=== PATIENT | female | born 1980 | race Caucasian/White ===

== ENCOUNTER 2022-08-24 05:53 | Emergency (ER) | payer OTHER, SELFPAY ==
[2022-08-24] VITALS (17 sets, daily range): BP systolic 105–141; BP diastolic 70–98; PULSE 60–87; RESP 16–18; TEMP 36.3–36.4; O2SAT 94–99
[2022-08-24] MEDS: KETOROLAC 30 MG/ML inj IVP (07:08)
[2022-08-24] MEDS: ONDANSETRON 2 MG/ML inj 4 MG IVP (07:08)
[2022-08-24] MEDS: 0.9 % SODIUM CHLORIDE 1000 ml 1,000 ML IV ×2 (07:09→09:26)
[2022-08-24 07:18] LABS: Basophils Absolute Auto 0.02 K/uL (0.00-0.30); Basophils Percent Auto 0.3 % (0.0-3.0); Eosinophils Percent Auto 1.4 % (0.0-7.0); Hematocrit 41.3 % (33.0-51.0); Hemoglobin* 13.3 gm/dL (12.0-16.0); Immature Granulocytes Abs Auto 0.01 K/uL (0.00-0.30); Immature Granulocytes Pct Auto 0.1 %; Lymphocytes Absolute Auto 1.48 K/uL (0.90-2.90); Lymphocytes Percent Auto 20.5 % (20-44); Mean Corpuscular HGB Conc 32 gm/dL (32-36); Mean Corpuscular Hemoglobin 29 pg (26-34); Mean Corpuscular Volume 90 fL (80-100); Monocytes Percent Auto 4.7 % (0.0-11.0); Platelet Count* 234 K/uL (140-440); RDW Coefficient of Variation % 12.6 % (11.5-15.5); Red Blood Count 4.59 m/uL (4.00-5.20); White Blood Count* 7.22 K/uL (4.50-11.00)
[2022-08-24 07:24] LABS: Slide Review Reflex No
[2022-08-24 07:29] LABS: Albumin* 4.2 g/dL (3.3-5.0); Chloride* 105 mmol/L (96-114)
[2022-08-24 07:30] LABS: Sodium* 138 mmol/L (135-149)
[2022-08-24 07:32] LABS: Aspartate Amino Transferase* 40 U/L (12-35); Bilirubin Direct* 0.3 mg/dL (0.0-0.5); Bilirubin Total* 0.7 mg/dL (0.1-1.5); Carbon Dioxide* 27 mmol/L (20-32); Creatinine* 0.6 mg/dL (0.5-1.5); Estimated Glomerular Filt Rate 116 ml/min; Total Protein* 7.6 g/dL (6.0-8.3)
[2022-08-24 07:33] LABS: Alanine Aminotransferase* 70 U/L (4-35); Alkaline Phosphatase* 53 U/L (40-150); Blood Urea Nitrogen* 17 mg/dL (5-24); Calcium* 9.1 mg/dL (8.4-10.6); Glucose* 104 mg/dL (60-115)
[2022-08-24 07:45] LABS: Strep A DNA Probe* NOT DETECTED (Not Detectd)
[2022-08-24 07:58] LABS: PCR FLU A Negative PCR FLU A (Negative); PCR FLU B Negative PCR FLU B (Negative)
[2022-08-24 07:58] LABS: Appearance Urine Clear (Clear); Bilirubin Urine Negative (Negative); Blood Urine Negative (Negative); Color Urine Yellow (Yellow); Glucose Urine Negative (Negative); Ketones Urine Negative (Negative); Leukocyte Esterase Urine Negative (Negative); Nitrite Urine Negative (Negative); Protein Urine Negative (Negative)
[2022-08-24 07:59] LABS: SARS PCR* Negative SARS-CoV-2 (Negative)
[2022-08-24 08:01] LABS: Erythrocyte SedimentationRate* 40 mm/hr (2-20)
--- NOTE | 2022-08-24 08:20 | ED.GENADULT ---
HPI - General Adult General Chief complaint: Unspecified Complaint, Adult Stated complaint: body aches, headache, exhaustion Time Seen by Provider: 08/24/22 06:35 History of Present Illness HPI narrative: pt seen in Urgent 08/22/2022 , diagnosed with UTI. Not feeling any better, was told she would feel a little better in 24 hours. Pt still has complaint of body aches, specifically her joints. Was wondering if she possible has Lyme disease. No classis bullseye tick mcneil noted. pt reports multiple bug bites at ankles . pt reports still taking medication for her UTI. 42-year-old woman presenting to the emergency department with complaint of diffuse pain. Pain through back and joints. bad headache. Some nausea. Tearful. Does report a history of migraines. Was seen a day ago in Urgent Care initiated on nitrofurantoin for presumed urinary tract infection. Did have some consistent findings in the urine at that time. Grew out mixed miller. Did not have any abdominal pain dysuria frequency urgency. Has not noticed unusual discharge. She has had some swelling now on her left ankle and her thumbs feel painful. Again just hurts most all over. Pain is increased over the course of 1 week. She has not seen any rashes. She has had bug bites generally over ankles. She is worried that might have Lyme disease. In further conversation she does note that there was a question of some immune mediated disease on workup in the past. As I review records it looks as though ADALI was detected. Does not sound as though this was pursued. Later also notes that he had gotten off the phone with her mother that her father has been diagnosed with PMR. Denies possibility of gonorrhea or chlamydial infection. Related Data Previous Rx's Medication Instructions Recorded nitrofurantoin 100 mg PO BID 7 days #14 caps 08/22/22 monohydrate/macrocrystals 100 mg capsule Allergies Allergy/AdvReac Type Severity Reaction Status Date / Time No Known Drug Allergies Allergy Verified 08/22/22 13:09 Review of Systems Status of ROS: Reports: 10 or more systems reviewed and unremarkable except as noted in History and below [facility] Social History Smoking Status: Never smoker Non-prescribed substance use: denies use Exam Narrative: Exam Narrative: Mild effusion at the left ankle. Mildly tender generally. Const: Vital Signs, click to edit/add: Vital Signs - 24 hr 08/24/22 06:00 08/24/22 08:10 08/24/22 09:28 Temperature 97.5 F L 97.4 F L 97.5 F L Pulse Rate Pulse Rate [Left P ulse Oximeter] 87 76 69 Respiratory Rate 18 18 16 Blood Pressure Blood Pressure [Ri ght Upper Arm] 141/98 H 117/70 115/90 H Pulse Oximetry 99 98 98 Oxygen Delivery Me thod Room Air Room Air Room Air 08/24/22 10:18 08/24/22 10:19 08/24/22 10:30 Temperature Pulse Rate 69 68 68 Pulse Rate [Left P ulse Oximeter] Respiratory Rate Blood Pressure 121/84 Blood Pressure [Ri ght Upper Arm] Pulse Oximetry 95 95 96 Oxygen Delivery Me thod 08/24/22 10:31 08/24/22 10:45 08/24/22 11:00 Temperature Pulse Rate 65 66 66 Pulse Rate [Left P ulse Oximeter] Respiratory Rate Blood Pressure 116/79 Blood Pressure [Ri ght Upper Arm] Pulse Oximetry 94 95 98 Oxygen Delivery Me thod 08/24/22 11:02 08/24/22 11:15 Temperature Pulse Rate 61 60 Pulse Rate [Left P ulse Oximeter] Respiratory Rate Blood Pressure 105/90 H Blood Pressure [Ri ght Upper Arm] Pulse Oximetry 96 98 Oxygen Delivery Me thod Documenting provider has reviewed patient's vital signs: yes Course Vital Signs Vital signs: Initial Vital Signs Temperature 97.5 F L 08/24/22 06:00 Temperature Source Temporal Artery Scan 08/24/22 06:00 Pulse Rate 87 08/24/22 06:00 Pulse Rhythm Regular 08/24/22 06:00 Respiratory Rate 18 08/24/22 06:00 Blood Pressure 141/98 H 08/24/22 06:00 Blood Pressure Mean 112 H 08/24/22 06:00 Blood Pressure Position Semi-Fowlers 08/24/22 06:00 Pulse Oximetry 99 08/24/22 06:00 Oxygen Delivery Method Room Air 08/24/22 06:00 Vital Signs Temperature 97.5 F L 08/24/22 06:00 Pulse Rate 87 08/24/22 06:00 Respiratory Rate 18 08/24/22 06:00 Blood Pressure 141/98 H 08/24/22 06:00 Pulse Oximetry 99 08/24/22 06:00 Oxygen Delivery Method Room Air 08/24/22 06:00 Temperature 97.5 F L 08/24/22 09:28 Pulse Rate 60 08/24/22 11:15 Respiratory Rate 16 08/24/22 09:28 Blood Pressure 105/90 H 08/24/22 11:02 Pulse Oximetry 98 08/24/22 11:15 Oxygen Delivery Method Room Air 08/24/22 09:28 Medical Decision Making MDM Narrative Medical decision making narrative: Underlying history of migraines. Does seem to have a polyarthralgia. Myalgias. Appears to be some viral illness most likely. Need to evaluate though for tick-borne illness or possibly mosquito borne illness like West Nile. Will be treating headache with normal saline Zofran and ketorolac as well as prednisone single dose. After treatment as above still with headache. Proposed ketamine but due to sort edge trialed half a mg of Dilaudid. Headache remained intense especially behind her eyes though not indistinct from history of migraines. Otherwise remains without meningeal signs. Initiated ketamine infusion and overall is somewhat improved feels she can return home. Labs are concerning for mildly elevated transaminases absent of abdominal pain, elevated CRP and ESR. Urinalysis without any evidence of urinary tract infection. Have added on send outs for tick panel as well as West Nile. See patient discharge plan Medical Records Medical records reviewed: Yes I reviewed the patient's medical records Lab Data Lab results reviewed: Yes I reviewed the patient's lab results Labs: Lab Results 08/24/22 08/24/22 08/24/22 Range/Units 07:05 07:10 07:40 WBC 7.22 (4.50-11.00) K/uL RBC 4.59 (4.00-5.20) m/uL Hgb 13.3 (12.0-16.0) gm/dL Hct 41.3 (33.0-51.0) % MCV 90 (80-100) fL MCH 29 (26-34) pg MCHC 32 (32-36) gm/dL RDW Coeff of Jenaro 12.6 (11.5-15.5) % Plt Count 234 (140-440) K/uL Neut % (Auto) 73.0 H (42.0-72.0) % Lymph % (Auto) 20.5 (20-44) % [place] % (Auto) 4.7 (0.0-11.0) % Eos % (Auto) 1.4 (0.0-7.0) % Baso % (Auto) 0.3 (0.0-3.0) % Neut # (Auto) 5.30 (1.7-7.0) K/uL Lymph # (Auto) 1.48 (0.90-2.90) K/uL [place] # (Auto) 0.30 (0.00-0.90) K/UL Eos # (Auto) 0.10 (0.00-0.50) K/uL Baso # (Auto) 0.02 (0.00-0.30) K/uL ESR 40 H (2-20) mm/hr Sodium 138 (135-149) mmol/L Potassium 4.0 (3.6-5.1) mmol/L Chloride 105 (96-114) mmol/L Carbon Dioxide 27 (20-32) mmol/L BUN 17 (5-24) mg/dL Creatinine 0.6 (0.5-1.5) mg/dL Estimated GFR 116 ml/min Glucose 104 (60-115) mg/dL Calcium 9.1 (8.4-10.6) mg/dL Total Bilirubin 0.7 (0.1-1.5) mg/dL Direct Bilirubin 0.3 (0.0-0.5) mg/dL AST 40 H (12-35) U/L ALT 70 H (4-35) U/L Alkaline Phosphatase 53 (40-150) U/L C-Reactive Protein 3.0 H (0.5-1.0) mg/dL Total Protein 7.6 (6.0-8.3) g/dL Albumin 4.2 (3.3-5.0) g/dL Urine Color Yellow (Yellow) Urine Appearance Clear (Clear) Urine pH 7.0 (5.0-8.5) Ur Specific [place] 1.020 (1.000-1.030) Urine Protein Negative (Negative) Urine Glucose (UA) Negative (Negative) Urine Ketones Negative (Negative) Urine Blood Negative (Negative) Urine Nitrite Negative (Negative) Urine Bilirubin Negative (Negative) Urine Urobilinogen 1.0 (0.2-1.0) Ur Leukocyte Esterase Negative (Negative) Urine RBC 0-2 (0-2) Urine WBC 0-2 (0-5) Ur Squamous Epith Cells Few (None-Few) Urine Bacteria Few A (None) SARS-CoV-2 (PCR) Negative SARS-CoV-2 (Negative) Influenza Type A (PCR) Negative PCR FLU A (Negative) Influenza Type B (PCR) Negative PCR FLU B (Negative) Group A Strep DNA NOT DETECTED (Not Detectd) Lab Acknowledgement Test Added 08/24/22 Range/Units 10:46 WBC (4.50-11.00) K/uL RBC (4.00-5.20) m/uL Hgb (12.0-16.0) gm/dL Hct (33.0-51.0) % MCV (80-100) fL MCH (26-34) pg MCHC (32-36) gm/dL RDW Coeff of Jenaro (11.5-15.5) % Plt Count (140-440) K/uL Neut % (Auto) (42.0-72.0) % Lymph % (Auto) (20-44) % [place] % (Auto) (0.0-11.0) % Eos % (Auto) (0.0-7.0) % Baso % (Auto) (0.0-3.0) % Neut # (Auto) (1.7-7.0) K/uL Lymph # (Auto) (0.90-2.90) K/uL [place] # (Auto) (0.00-0.90) K/UL Eos # (Auto) (0.00-0.50) K/uL Baso # (Auto) (0.00-0.30) K/uL ESR (2-20) mm/hr Sodium (135-149) mmol/L Potassium (3.6-5.1) mmol/L Chloride (96-114) mmol/L Carbon Dioxide (20-32) mmol/L BUN (5-24) mg/dL Creatinine (0.5-1.5) mg/dL Estimated GFR ml/min Glucose (60-115) mg/dL Calcium (8.4-10.6) mg/dL Total Bilirubin (0.1-1.5) mg/dL Direct Bilirubin (0.0-0.5) mg/dL AST (12-35) U/L ALT (4-35) U/L Alkaline Phosphatase (40-150) U/L C-Reactive Protein (0.5-1.0) mg/dL Total Protein (6.0-8.3) g/dL Albumin (3.3-5.0) g/dL Urine Color (Yellow) Urine Appearance (Clear) Urine pH (5.0-8.5) Ur Specific [place] (1.000-1.030) Urine Protein (Negative) Urine Glucose (UA) (Negative) Urine Ketones (Negative) Urine Blood (Negative) Urine Nitrite (Negative) Urine Bilirubin (Negative) Urine Urobilinogen (0.2-1.0) Ur Leukocyte Esterase (Negative) Urine RBC (0-2) Urine WBC (0-5) Ur Squamous Epith Cells (None-Few) Urine Bacteria (None) SARS-CoV-2 (PCR) (Negative) Influenza Type A (PCR) (Negative) Influenza Type B (PCR) (Negative) Group A Strep DNA (Not Detectd) Lab Acknowledgement Test Added Discharge Plan Discharge Clinical Impression: Myalgia, Arthralgia, Migraine Patient Disposition: Home w/ Parent or Adult Condition: Improved Additional Instructions: Focus on hydration. Can take up to 800 mg of ibuprofen per dose. This can be combined with up to 1000 mg of acetaminophen per dose. Alternative to the ibuprofen might be up to 500 mg naproxen 2 times daily. Your lab reports should be back in 4-5 days. I would ask you to follow up these results in primary care. Doxycycline and Percocet from [facility]. As I said, protect from the sun during this course of doxycycline and for a few days after. Remember that each tablet of Percocet contains 325 mg of acetaminophen. Return for uncontrolled headache, increasing fever, uncontrolled joint pain or swelling. Can discontinue nitrofurantoin. Prescriptions: No Action nitrofurantoin monohyd/m-cryst 100 mg capsule 100 mg PO BID 7 Days Qty: 14 0RF Rx Instructions: must administer with a meal/food Follow Up/Referrals: Denise Castanon MD [Primary Care Provider] - Stand Alone Forms: [facility] Info Instructions
[2022-08-24 08:21] LABS: RBC Urine 0-2 (0-2); WBC Urine 0-2 (0-5)
[2022-08-24 08:22] LABS: Bacteria Urine Few; Squamous Epithelial Cell Urine Few (None-Few)
[2022-08-24] MEDS: predniSONE 10 MG TABLET 60 MG PO (09:24)
[2022-08-24] MEDS: HYDROmorphone 0.5 mg/0.5 ml inj IVP (10:08)
[2022-08-24] MEDS: KETAMINE HCL 20 MG in 0.9 % SODIUM CHLORIDE 100 ml 100 ML 300.6 MG IVPB (11:30)
[2022-08-28 08:14] LABS: Anaplasma phagocyt PCR Not Detected; Babesia microti by PCR Not Detected; Babesia species by PCR Not Detected; Ehrlichia chaffeensis by PCR Not Detected; Ehrlichia ewingii/canis by PCR Not Detected; Ehrlichia muris-like by PCR Not Detected
== END 2022-08-24 12:15 | disposition home or self-care (01) ==
PROVIDERS: Emergency Provider Family Medicine; PCP Internal Medicine
DX: M79.10 Myalgia, unspecified site (principal); G43.909 Migraine, unspecified, not intractable, without status migrainosus
CPT/HCPCS: 36415; 80048; 80076; 81001; 85025; 85651; 86140; 86789; 87086; 87631; 87651; 87798; 96365; 96375; 99284; J1170; J1885; J2405; J3490; J7030; J7512

== ENCOUNTER 2022-09-02 14:47 | Outpatient (CLI) | payer OTHER, SELFPAY | END 2022-09-02 14:48 | disposition home or self-care (01) | PROVIDERS: PCP Internal Medicine; Visit Provider Internal Medicine | DX: M79.10 Myalgia, unspecified site (principal); E66.9 Obesity, unspecified | CPT/HCPCS: 80053; 84443 ==

== ENCOUNTER 2022-10-13 15:32 | Outpatient (CLI) | payer OTHER, SELFPAY | END 2022-10-13 15:33 | disposition home or self-care (01) | PROVIDERS: PCP Internal Medicine; Visit Provider Physician Assistant | DX: Z01.419 Encounter for gynecological examination (general) (routine) without abnormal findings (principal); Z13.6 Encounter for screening for cardiovascular disorders; Z13.1 Encounter for screening for diabetes mellitus | CPT/HCPCS: 80061; 82947 ==

== ENCOUNTER 2022-11-13 14:32 | Outpatient (CLI) | payer OTHER, SELFPAY ==
--- NOTE | 2022-11-13 14:40 | CRLHL7_ITS ---
For Patients: As a result of the Century Cures Act, medical imaging exams and procedure reports are released immediately into your electronic medical record. You may view this report before your referring provider. If you have questions, please contact your health care provider. BILATERAL DIGITAL SCREENING MAMMOGRAM WITH TOMOSYNTHESIS AND COMPUTER-AIDED DETECTION CLINICAL HISTORY: Routine screening exam. COMPARISON: None. TECHNIQUE: Digital mammogram in CC and MLO projections including computer-aided detection (CAD). Tomosynthesis utilized. BREAST COMPOSITION: The breasts are heterogeneously dense, which may obscure small masses. FINDINGS: RIGHT Breast: Focal asymmetric density upper outer quadrant 5 cm from the nipple. LEFT Breast: No suspicious findings. IMPRESSION: RIGHT breast asymmetry/mass. RECOMMENDATIONS: Additional mammographic views of the RIGHT breast including 3D spot compression CC/MLO. RIGHT breast ultrasound may also be required. BI-RADS Category 0: Incomplete: Need Additional Imaging Evaluation and/or Prior Mammograms for Comparison The [facility] will contact the patient for follow-up. A lay language report of this examination will be provided to the patient. Dictated by Stevie Cuadra MD @ 11/20/2022 12:01:56 PM sharad/Dictated by: Stevie Cuadra MD @ 11/20/2022 12:01:00 PM (Electronically Signed)
== END 2022-11-13 14:33 | disposition home or self-care (01) ==
LOC: MAMMO 14:32
PROVIDERS: PCP Internal Medicine; Visit Provider Internal Medicine
DX: Z12.31 Encounter for screening mammogram for malignant neoplasm of breast (principal); N63.10 Unspecified lump in the right breast, unspecified quadrant; R92.2 Inconclusive mammogram
CPT/HCPCS: 77063; 77067

== ENCOUNTER 2022-12-01 07:30 | Outpatient (CLI) | payer OTHER, SELFPAY ==
--- NOTE | 2022-12-01 07:45 | CRLHL7_ITS ---
For Patients: As a result of the Cures Act, medical imaging exams and procedure reports are released immediately into your electronic medical record. You may view this report before your referring provider. If you have questions, please contact your health care provider. DIAGNOSTIC RIGHT BREAST MAMMOGRAM WITH COMPUTER-AIDED DETECTION AND TOMOSYNTHESIS RIGHT BREAST ULTRASOUND CLINICAL HISTORY: RIGHT breast mass/asymmetry. COMPARISON: 11/13/2022. TECHNIQUE: Digital RIGHT mammogram in 2 projections. Computer-aided detection and tomosynthesis were used. Real-time ultrasound imaging of RIGHT breast with imaging documentation. BREAST COMPOSITION: The breasts are heterogeneously dense, which may obscure small masses FINDINGS: 3D spot compression CC/MLO RIGHT breast mammogram images submitted. Decreased conspicuity of previously noted asymmetric density. No architectural distortion or suspicious mass. No suspicious calcifications. Targeted RIGHT breast ultrasound performed at 11 o`clock 5 cm from the nipple. Normal dense fibroglandular tissue is present. No fibrocystic change or solid mass. IMPRESSION: No evidence of malignancy. RECOMMENDATIONS: Annual bilateral screening mammography. BI-RADS Category 2: Benign Results and recommendations discussed with the patient. A lay language report of this examination will be provided to the patient. Dictated by Stevie Cuadra MD @ 12/01/2022 10:50:30 AM/dara JOSE/Dictated by: Stevie Cuadra MD @ 12/01/2022 10:50:00 AM (Electronically Signed)
--- NOTE | 2022-12-01 08:15 | CRLHL7_ITS ---
For Patients: As a result of the Century Cures Act, medical imaging exams and procedure reports are released immediately into your electronic medical record. You may view this report before your referring provider. If you have questions, please contact your health care provider. PLEASE SEE RIGHT DIAGNOSTIC MAMMOGRAM OF SAME DAY. CRL:dara JOSE/Dictated by: Stevie Cuadra MD @ 12/01/2022 10:50:00 AM (Electronically Signed)
== END 2022-12-01 07:31 | disposition home or self-care (01) ==
PROVIDERS: PCP Internal Medicine; Visit Provider Internal Medicine
DX: N63.10 Unspecified lump in the right breast, unspecified quadrant (principal); R92.8 Other abnormal and inconclusive findings on diagnostic imaging of breast
CPT/HCPCS: 76642; 77065; G0279

== ENCOUNTER 2023-03-01 19:22 | Emergency (ER) | payer OTHER, SELFPAY ==
[2023-03-01] VITALS (13 sets, daily range): BP systolic 120–140; BP diastolic 81–104; PULSE 69–84; RESP 18; TEMP 36.3; O2SAT 95–98
--- NOTE | 2023-03-01 19:49 | CRLHL7_ITS ---
For Patients: As a result of the Century Cures Act, medical imaging exams and procedure reports are released immediately into your electronic medical record. You may view this report before your referring provider. If you have questions, please contact your health care provider. INDICATION: Chest pain TECHNIQUE: Two view chest. FINDINGS: The lungs are clear. The heart, mediastinum and pulmonary vessels are of normal size. There is no evidence of pleural disease. IMPRESSION: Negative chest. Dictated by Geri Chaudhary MD @ 03/01/2023 8:55:32 PM (Electronically Signed)
--- NOTE | 2023-03-01 19:51 | ED_ITS ---
HPI - Chest Pain General Date Seen: 03/01/23 Chief Complaint: Chest Pain Stated Complaint: chest pain, heavy, tingling in arms, pain Time Seen by Provider: 03/01/23 19:25 Source: patient Mode of arrival: ambulatory Limitations: no limitations History of Present Illness HPI narrative: Patient is a very nice 42-year-old female presents here with the centralized chest discomfort, it does radiate to her neck region, is a little bit more intense today than it has been in the past. But she has had this on off for the last 3-6 weeks. She thinks it might be related to her anxiety but she is unsure about that she took some Tylenol earlier today and that did not really change it. She denies any left arm issues associated with this she has no real shortness of breath there is no pleuritic component with this. She has no nausea vomiting or diaphoresis it does not worsen when she walks or moves around. Positive family history with her father having premature coronary disease at age 55, she has elevated lipids, she is not a diabetic, no history of hypertension nonsmoker. Does have an elevated BMI. Being treated currently for anxiety she said she feels this is being treated much better, does not know why she would have the symptoms, she does have a history of palpitations also for the last 3 years on off. Risk Factors Coronary artery disease risk factors: hyperlipidemia and family history of CAD before age 50 Thoracic aortic dissection risk factors: none Related Data On Oral Contraceptives: No Previous Rx's Medication Instructions Recorded escitalopram oxalate 10 mg tablet 10 mg PO QDAY #60 tabs 12/23/22 escitalopram oxalate 5 mg tablet 5 mg PO QDAY #60 tabs 12/23/22 rizatriptan 10 mg tablet (Maxalt) See Rx Instructions PO .COMPLEX #9 12/23/22 tabs omeprazole 20 mg capsule,delayed 20 mg PO DAILY #30 caps 03/01/23 release Allergies Allergy/AdvReac Type Severity Reaction Status Date / Time No Known Drug Allergies Allergy Unverified 10/13/22 14:55 Review of Systems Status of ROS Reports: 10 or more systems reviewed and unremarkable except as noted in History and below PFSH PFS Medical History Vaginal delivery (12/22/12) ?O80 - Encounter for full-term uncomplicated delivery (ICD-10) History of benign breast biopsy (07/30/09) ?Z98.890 - Other specified postprocedural states (ICD-10) Folliculitis ?L73.9 - Follicular disorder, unspecified (ICD-10) Surgical History History of ovarian cystectomy ?Z98.890 - Other specified postprocedural states (ICD-10) ?Z87.42 - Personal history of other diseases of the female genital tract (ICD-10) History of appendectomy ?Z90.49 - Acquired absence of other specified parts of digestive tract (ICD- 10) Family History Father High blood pressure High cholesterol Social History Narrative: School counselor. Master's degree. . Exercises 5 times a week. Nonsmoker, no alcohol use Illicit drug use No concerns for safety or abuse. What is your current living situation?: I presently have a place to live Problems where you live: no known problems In the past 12 months, utilities in danger of being shut off: no In past 12 months, lack of transportation kept you from medical appts, meetings, work, or getting things needed for daily living: no How hard is it for you to pay for the very basics like food, housing, medical care, and heating: not very hard In the past 12 mos, have been you worried that your food would run out before you had money to buy more?: never true In the past 12 mos, the food you bought just didn't last and you didn't have money to buy more?: never true Smoking Status: Never smoker Non-prescribed substance use: denies use How often does anyone, including family, friends and others, physically hurt you : never How often does anyone, including family, friends and others, insult or talk down to you: never How often does anyone, including family, friends and others, threaten you with harm: never How often does anyone, including family, friends and others, scream or curse at you: never Little interest or pleasure in doing things: several days Feeling down, depressed, or hopeless: several days Exam Narrative Exam Narrative: Patient is speaking normally, no problem with slurring words, oriented x3. Head eyes ears nose and throat exam show equal pupils, no scleral icterus, extraocular muscles are normal, no facial droop, speech is normal, trachea normal and midline. Thyroid normal midline palpable not enlarged. Chest shows symmetrical rise bilaterally, normal auscultation with no wheezes, no increased work of breathing, no overt bruising or lesions seen, no tenderness is noted on auscultation. Heart sounds normal with no S3-S4 no murmurs clicks or gallops. Abdomen shows no obvious masses or hepatosplenomegaly, no organomegaly, bowel sounds are normal in all quadrants. No tenderness is noted also in all quadrants. Upper and lower extremities show normal power, normal range of motion, pulses are normal, sensations normal, fine motor movements are normal, pelvis is stable to rocking. Cervical spine shows normal range of motion, and palpably not tender. Thoracic spine shows normal range of motion, and palpably not tender, lumbar spine shows no tenderness to palpation percussion and is othe rwise normal range of motion. Skin shows no rashes, petechiae or eccymosis. Const Vital Signs, click to edit/add: Vital Signs - 24 hr 03/01/23 19:29 03/01/23 19:42 03/01/23 19:43 Temperature 97.3 F L Pulse Rate 75 84 Pulse Rate [Left Pulse Oximeter] 78 Respiratory Rate 18 Blood Pressure 140/104 H Blood Pressure [Right Upper Arm] 138/92 H Pulse Oximetry 98 98 98 Oxygen Delivery Method Room Air 03/01/23 19:45 03/01/23 20:00 03/01/23 20:02 Temperature Pulse Rate 82 76 77 Pulse Rate [Left Pulse Oximeter] Respiratory Rate Blood Pressure 128/91 H Blood Pressure [Right Upper Arm] Pulse Oximetry 98 97 97 Oxygen Delivery Method 03/01/23 20:15 03/01/23 20:21 03/01/23 20:30 Temperature Pulse Rate 82 76 73 Pulse Rate [Left Pulse Oximeter] Respiratory Rate Blood Pressure 130/81 Blood Pressure [Right Upper Arm] Pulse Oximetry 97 95 97 Oxygen Delivery Method 03/01/23 20:42 03/01/23 20:45 Temperature Pulse Rate 74 71 Pulse Rate [Left Pulse Oximeter] Respiratory Rate Blood Pressure 120/84 Blood Pressure [Right Upper Arm] Pulse Oximetry 97 97 Oxygen Delivery Method Documenting provider has reviewed patient's vital signs: yes Course Course ED Course: Reassured patient, all her laboratory work look reasonable, I do not think this is a cardiac cause of her chest pain, but I do think reflux is a possibility, omeprazole 20 mg a day is suggested we went over signs symptoms of worsening, and follow up with her primary care physician suggestive ongoing pain a stress echo, but I do think trying the omeprazole be a good 1st step. He was reassured by this Vital Signs Vital signs: Initial Vital Signs Temperature 97.3 F L 03/01/23 19:29 Temperature Source Temporal Artery Scan 03/01/23 19:29 Pulse Rate 78 03/01/23 19:29 Pulse Rhythm Regular 03/01/23 19:29 Respiratory Rate 18 03/01/23 19:29 Blood Pressure 138/92 H 03/01/23 19:29 Blood Pressure Mean 107 H 03/01/23 19:29 Blood Pressure Position Sitting 03/01/23 19:29 Pulse Oximetry 98 03/01/23 19:29 Oxygen Delivery Method Room Air 03/01/23 19:29 Vital Signs Temperature 97.3 F L 03/01/23 19:29 Pulse Rate 78 03/01/23 19:29 Respiratory Rate 18 03/01/23 19:29 Blood Pressure 138/92 H 03/01/23 19:29 Pulse Oximetry 98 03/01/23 19:29 Oxygen Delivery Method Room Air 03/01/23 19:29 Temperature 97.3 F L 03/01/23 19:29 Pulse Rate 71 03/01/23 20:45 Respiratory Rate 18 03/01/23 19:29 Blood Pressure 120/84 03/01/23 20:42 Pulse Oximetry 97 03/01/23 20:45 Oxygen Delivery Method Room Air 03/01/23 19:29 Medications Administered Medications: Discontinued Medications Generic Name Dose Route Start Last Admin Trade Name Freq PRN Reason Stop Dose Admin Aspirin 324 mg 03/01/23 19:57 03/01/23 20:15 Aspirin 81 Mg Tab.Chew PO 03/01/23 19:58 324 mg ONCE ONE Administration Sodium Chloride 1,000 mls @ 1,000 mls/hr 03/01/23 20:00 03/01/23 20:15 0.9 % Sodium Chloride 1000 Ml IV 03/01/23 20:59 1,000 mls/hr .Q1H JUAN Administration MDM - Chest Pain MDM Narrative Medical decision making narrative: During the evaluation of this patient I considered multiple differential diagnosis is. The life-threatening differential diagnosis include coronary disease/RI, pulmonary embolism, pneumothorax, pneumonia, and aortic dissection. Other differential diagnosis included but were not limited to pericarditis, myocarditis, chest wall pain, GERD, esophageal rupture, rib fracture contusion, pleurisy, as well as other etiologies. Medical Records Data Attestation: I reviewed the patient's medical records. Lab Data Attestation: I reviewed the patient's lab results. Labs: Lab Results 03/01/23 Range/Units 20:00 WBC 8.01 (4.50-11.00) K/uL RBC 4.62 (4.00-5.20) m/uL Hgb 13.5 (12.0-16.0) gm/dL Hct 41.5 (33.0-51.0) % MCV 90 (80-100) fL MCH 29 (26-34) pg MCHC 33 (32-36) gm/dL RDW Coeff of Jenaro 13.0 (11.5-15.5) % Plt Count 268 (140-440) K/uL Neut % (Auto) 61.3 (42.0-72.0) % Lymph % (Auto) 31.1 (20-44) % [place] % (Auto) 5.2 (0.0-11.0) % Eos % (Auto) 2.0 (0.0-7.0) % Baso % (Auto) 0.4 (0.0-3.0) % Neut # (Auto) 4.91 (1.7-7.0) K/uL Lymph # (Auto) 2.49 (0.90-2.90) K/uL [place] # (Auto) 0.40 (0.00-0.90) K/UL Eos # (Auto) 0.16 (0.00-0.50) K/uL Baso # (Auto) 0.03 (0.00-0.30) K/uL Abs Immat Gran (auto) 0.00 (0.00-0.30) K/uL Imm/Tot Granulo (auto) 0.0 % D-Dimer Quant (PE/DVT) < 0.27 (0.00-0.50) ug/ml Sodium 138 (135-149) mmol/L Potassium 3.6 (3.6-5.1) mmol/L Chloride 103 (96-114) mmol/L Carbon Dioxide 26 (20-32) mmol/L Anion Gap 9 (7-15) mEq/L BUN 16 (5-24) mg/dL Creatinine 0.7 (0.5-1.5) mg/dL Estimated GFR 112 ml/min Glucose 92 (60-115) mg/dL Calcium 9.2 (8.4-10.6) mg/dL Total Bilirubin 0.2 (0.1-1.5) mg/dL Direct Bilirubin 0.0 (0.0-0.5) mg/dL AST 25 (12-35) U/L ALT 26 (4-35) U/L Alkaline Phosphatase 38 L (40-150) U/L Troponin I 0.02 (0.01-0.04) ng/mL NT-Pro-B Natriuret Pep 104 pg/mL Total Protein 7.8 (6.0-8.3) g/dL Albumin 4.6 (3.3-5.0) g/dL Lipase 47 (23-300) U/L SARS-CoV-2 (PCR) Negative SARS-CoV-2 (Negative) Influenza Type A (PCR) Negative PCR FLU A (Negative) Influenza Type B (PCR) Negative PCR FLU B (Negative) RSV (PCR) Negative PCR RSV (Negative) Imaging Data Chest x-ray: Attestation: I have reviewed the pertinent imaging results. My impression: Chest x-ray by my review shows no acute findings, ECG Data Attestation: I personally reviewed and interpreted this ECG as follows: ECG interpretation date: 03/01/23 Interpretation: EKG shows normal sinus rhythm no acute ST wave changes. Assessment normal EKG. Discharge Plan Discharge Clinical Impression: Heart palpitations, Chest pain Patient Disposition: Home, Self-Care Condition: Stable Instructions: Chest Pain (DC), Heart Palpitations (ED), GERD (Gastroesophageal Reflux Disease) (DC) Additional Instructions: All a tests were normal, including her troponin EKG chest x-ray and a D-dimer. I do really suspect that this might be related to reflux, he do have some risk factors for heart disease, but overall I think I would suggest trying omeprazole 20 mg a day for the next 30 days. Follow-up with regular physician if any other concerns arise then we would suggest a stress echo, but tonight I can reassure you. Activity Level: Light activity Prescriptions: New omeprazole 20 mg capsule,delayed release(DR/EC) 20 mg PO DAILY Qty: 30 3RF No Action escitalopram oxalate 10 mg tablet 10 mg PO QDAY Qty: 60 3RF escitalopram oxalate 5 mg tablet 5 mg PO QDAY Qty: 60 3RF rizatriptan [Maxalt] 10 mg tablet See Rx Instructions PO .COMPLEX Qty: 9 3RF Rx Instructions: take 1 tab at onset of headache; if no relief may repeat 1 tab after at least 2 hrs; max = 3 tabs/24 hr PO Follow Up/Referrals: Generic,Amb Provider [Staff Physician] - Stand Alone Forms: MyHealth Info Instructions
[2023-03-01 20:08] LABS: Basophils Absolute Auto 0.03 K/uL (0.00-0.30); Basophils Percent Auto 0.4 % (0.0-3.0); Eosinophils Absolute Auto 0.16 K/uL (0.00-0.50); Hematocrit 41.5 % (33.0-51.0); Hemoglobin* 13.5 gm/dL (12.0-16.0); Lymphocytes Absolute Auto 2.49 K/uL (0.90-2.90); Lymphocytes Percent Auto 31.1 % (20-44); Mean Corpuscular HGB Conc 33 gm/dL (32-36); Mean Corpuscular Hemoglobin 29 pg (26-34); Mean Corpuscular Volume 90 fL (80-100); Monocytes Percent Auto 5.2 % (0.0-11.0); Neutrophils Absolute Auto 4.91 K/uL (1.7-7.0); Neutrophils Percent Auto 61.3 % (42.0-72.0); Platelet Count* 268 K/uL (140-440); Red Blood Count 4.62 m/uL (4.00-5.20); White Blood Count* 8.01 K/uL (4.50-11.00)
[2023-03-01 20:09] LABS: Slide Review Reflex No
[2023-03-01] MEDS: 0.9 % SODIUM CHLORIDE 1000 ml 1,000 ML IV (20:15)
[2023-03-01] MEDS: ASPIRIN 81 MG TAB.CHEW 324 MG PO (20:15)
[2023-03-01 20:22] LABS: Albumin* 4.6 g/dL (3.3-5.0)
[2023-03-01 20:23] LABS: Chloride* 103 mmol/L (96-114); Potassium* 3.6 mmol/L (3.6-5.1); Sodium* 138 mmol/L (135-149)
[2023-03-01 20:25] LABS: Alkaline Phosphatase* 38 U/L (40-150); Anion Gap 9 mEq/L (7-15); Aspartate Amino Transferase* 25 U/L (12-35); Bilirubin Total* 0.2 mg/dL (0.1-1.5); Blood Urea Nitrogen* 16 mg/dL (5-24); Carbon Dioxide* 26 mmol/L (20-32); Creatinine* 0.7 mg/dL (0.5-1.5); Estimated Glomerular Filt Rate 112 ml/min; Total Protein* 7.8 g/dL (6.0-8.3)
[2023-03-01 20:26] LABS: Alanine Aminotransferase* 26 U/L (4-35); Calcium* 9.2 mg/dL (8.4-10.6); Glucose* 92 mg/dL (60-115); Lipase* 47 U/L (23-300)
[2023-03-01 20:35] LABS: D Dimer Quantitative* < 0.27 ug/ml (0.00-0.50)
[2023-03-01 20:37] LABS: Troponin I* 0.02 ng/mL (0.01-0.04)
[2023-03-01 20:41] LABS: NT Pro B Type NatriureticPept* 104 pg/mL
[2023-03-01 20:52] LABS: PCR FLU A Negative PCR FLU A (Negative); PCR FLU B Negative PCR FLU B (Negative); PCR RSV Negative PCR RSV (Negative)
[2023-03-01 20:53] LABS: SARS PCR* Negative SARS-CoV-2 (Negative)
== END 2023-03-01 21:06 | disposition home or self-care (01) ==
PROVIDERS: Emergency Provider Family Medicine
DX: R07.9 Chest pain, unspecified (principal); R00.2 Palpitations
CPT/HCPCS: 36415; 71046; 80048; 80076; 83690; 83880; 84484; 85025; 85379; 87631; 93005; 94761; 99284; 99285; A9270; J7030

== ENCOUNTER 2024-01-18 13:08 | Outpatient (CLI) | payer BC, SELFPAY ==
--- OUTSIDE RECORDS SUMMARY | 2024-01-18 13:11 | XMS_ITS | Clinical Summary ---
Author Organization [email or web address] Address [place], [place] [address] Care Team Providers Care Communications Program Manager Name Role Phone Pcp, No Primary Care Provider Unavailabl e Allergies No known active allergies Medications Medication Sig Dispensed Refills Start Date End Date Status vitamin-folic acid 1 mg ( VITAMIN) tablet/capsule Take 1 tablet by mouth once daily. 0 05/06/2014 Active Active Problems Problem Noted Date Diagnosed Date Amenorrhea 03/27/2010 Lump or mass in breast 07/26/2009 Other and unspecified ovarian cyst 01/30/2009 Sprain of ankle, unspecified site 09/29/2006 Immunizations Name Administration Dates Next Due Tdap 07/10/2011 Family History Medical History Relation Name Comments Good Health Father Hyperlipidemia Father Good Health Mother Relation Name Status Comments Brother 1 Alive Brother 2 Alive Father Alive Maternal Grandfather Maternal Grandmother Alive Mother Alive Paternal Grandfather Paternal Grandmother Alive Social History Tobacco Use Types Packs/Day Years Used Date Smoking Tobacco: Never Smokeless Tobacco: Never Tobacco Cessation:Counseling Given: Yes Alcohol Use Standard Drinks/Week Comments No 0 (1 standard drink = 0.6 oz pur e alcohol) no Sex and Gender Information Value Date Recorded Sex Assigned at Not on file Gender Identity Not on file Sexual Orientation Not on file Obstetrics History Para Term AB IAB SAB Ectopic Multiple Livin g Live Births 1 0 1 1 0 Date Outcome GA Total Labor Labor/2nd/3rd Weight Sex Type Anes PTL Chaparrita A1 A5 Name Clin SAB Last Filed Vital Signs Vital Sign Reading Time Taken Comments Blood Pressure 106/73 05/06/2014 10:10 AM [facility] Pulse 92 05/06/2014 10:10 AM [facility] Temperature 36.4 ??C (97.6 ??F) 05/06/2014 1 0:10 AM [facility] Respiratory Rate 16 07/10/2011 3:42 PM CDT Oxygen Saturation 97% 01/07/2011 3:04 PM CDT Inhaled Oxygen Concentration - - Weight 80.2 kg (176 lb 12.8 oz) 015 10:10 AM [facility] Height 158.1 cm (5' 2.25) 07/10/2011 3:42 PM CD T Body Mass Index 32.08 07/10/2011 3:42 PM CDT Plan of Treatment Health Maintenance Due Date Last Done Comments Depression screening for age 12+ 1994 BMI (ht and wt on same day) for age 18+ 2000 Hepatitis C screening for age 18-79 2000 Tetanus booster 07/09/2021 07/10/2011 Pap test for age 21-65 01/03/2023 0, 01/04/2020, 04/18/2014, Additional history exists COVID-19 vaccine series (2023- season) 2023 Influenza for age 9-49 11/22/2023 HIV for age 15-65 Completed 10/08/2009 Tdap Completed 07/10/2011 Pneumococcal series for age 6-64 Aged Out No longer eligible based on patient's age to complete this topic Procedures Procedure Name Priority Date/Time Associated Diagnosis Comments AQUATICS ASSISTANT DEPARTMENT HEAD THIN PREP PAP DIAGNOSTIC IMAGED Routine 01/04/2020 9:00 AM CDT ANTI HIV 1/2 Routine 10/08/2009 3:30 PM CDT Supervision of normal first from Last 3 Months or Most Recently Relevant to Health Maintenance Results * AQUATICS ASSISTANT DEPARTMENT HEAD THIN PREP PAP DIAGNOSTIC IMAGED (01/04/2020 9:00 AM CDT) Case Report Gynecologic Cytology Report ? Case: [id number] ? Authorizing Provider: ??Marcelina Zambrano ?Collected: ? 01/04/2020 0900 ? MD Jasmin ? Ordering Location: ? [facility] ?Received: ?01/05/2020 0959 ? First Screen: ?Emily Carter ? Pathologist: ? Melissa Quan MD ? Specimen: ?AQUATICS ASSISTANT DEPARTMENT HEAD ThinPrep Vial Diagnostic, Cervical/Vaginal ? 01/13/2020 11:25 AM [facility] EN[facility]AL LABORATORY INTERPRETATION/ RESULT NEGATIVE FOR INTRAEPITHELIAL LESION OR MALIGNANCY (NIL) (none) 01/13/2020 11:25 AM [facility] R NON-NEOPLASTIC FINDING(S) Reactive cellular changes associated with inflammation/repa ir 01/13/2020 11:25 AM [facility] SPECIMEN ADEQUACY Satisfactory for evaluation No endocervical component seen 01/13/2020 11:25 AM CDT [facility] HPV REQUEST HPV and PAP 01/13/2020 11:25 AM CDT [facility] Date of LMP 12/16/2019 01/13/2020 11:25 AM CDT [facility] Last Pap Date 04/18/2014 01/13/2020 11:25 AM CDT [facility] Last Pap Result NIL 0 11:25 AM CDT [facility] Comment:-hpv Additional Information 01/13/2020 11:25 AM CDT [facility] Comment: Interpreted at [facility] - [address], [place] [address] Automated Review Successful 01/13/2020 11:25 AM CDT [facility] Comment:Specimen processed s uccessfully by automated java web developer device, ThinPrep Imaging System, [employer] ANCILLARY TESTING AQUATICS ASSISTANT DEPARTMENT HEAD HPV Ordered, Please see separate report 01/13/2020 11:25 AM CDT [facility] Note The pap test is a screening technique, not a diagnostic procedure. It is used primarily to screen for squamous cancers and precursor lesions. Published studies have shown that it is subject to both false negative and false positive results. The pap test should not be used as the sole means to diagnose or exclude pre-malignant and malignant lesions. 01/13/2020 11:25 AM CDT [facility] Other (Cervical/Vagina l) 01/04/2020 9:00 AM CDT 01/05/2020 9:59 AM CDT Marcelina Zambrano MD PATHOLOGY/ CYTOLOGY [facility] [address] [place] [address], * HIV (10/08/2009 3:30 PM CDT) ANTI HIV 1/2 Non-reacti ve [facility] Blood specimen (specimen) BLOOD SPECIMEN / Unknown 10/08/2009 3:30 PM CDT 10/08/2009 3:23 PM CDT Brenda Mcclendon ENVELOPE FOLDING MACHINE OPERATOR SEND OUTS [facility] INTERNAL ZIP [id number] [address] from Last 3 Months or Most Recently Relevant to Health Maintenance Care Teams Communications Program Manager Relationship Specialty Start Date End Date Pcp, No . PCP - General 02/26/18
--- NOTE | 2024-01-18 13:20 | CRLHL7_ITS ---
For Patients: As a result of the Century Cures Act, medical imaging exams and procedure reports are released immediately into your electronic medical record. You may view this report before your referring provider. If you have questions, please contact your health care provider. BILATERAL SCREENING MAMMOGRAM WITH COMPUTER-AIDED DETECTION AND TOMOSYNTHESIS TECHNIQUE: CC and MLO views were obtained. These mammographic images have been obtained using full-field digital technique. These mammographic images were interpreted with the benefit of computer-aided detection. Breast Tomosynthesis was used in this interpretation. COMPARISON FILM: 11/13/22, 12/01/22. FINDINGS: There are scattered areas of fibroglandular density IMPRESSION: There is no radiographic evidence for malignancy. ASSESSMENT: BI-RADS Category 1: Negative RECOMMENDATION: Routine screening mammogram in 1 year. A lay language report of this examination will be provided to the patient. Stevie Cuadra M.D. Diagnostic Radiologist [email or web address] Transcribed: 1:29 p.taylor orourke/Dictated by: Stevie Cuadra MD @ 01/19/2024 8:51:00 AM (Electronically Signed)
== END 2024-01-18 13:09 | disposition home or self-care (01) ==
LOC: MAMMO 13:09
PROVIDERS: Visit Provider Physician Assistant
DX: Z12.31 Encounter for screening mammogram for malignant neoplasm of breast (principal)
CPT/HCPCS: 77063; 77067

== ENCOUNTER 2024-10-31 16:15 | Outpatient (CLI) | payer BC, SELFPAY ==
[2024-11-03 05:31] LABS: HPV Source Cervix
[2024-11-07 12:30] LABS: Pap Test Digital Imaging Done; Pap Test Reviewed by Pathologi Done
== END 2024-10-31 16:16 | disposition home or self-care (01) ==
PROVIDERS: Visit Provider Physician Assistant
DX: Z12.4 Encounter for screening for malignant neoplasm of cervix (principal); Z11.51 Encounter for screening for human papillomavirus (HPV)
CPT/HCPCS: 87624; 87625; 88141; 88142; 88175

== ENCOUNTER 2025-02-07 15:06 | Outpatient (CLI) | payer BC, SELFPAY ==
--- NOTE | 2025-02-07 15:20 | CRLHL7_ITS ---
For Patients: As a result of the Century Cures Act, medical imaging exams and procedure reports are released immediately into your electronic medical record. You may view this report before your referring provider. If you have questions, please contact your health care provider. INDICATION: BILATERAL SCREENING MAMMOGRAM, ASYMPTOMATIC 44 Y/O FEMALE COMPARISON: 01/18/2024, 12/01/2022, 11/13/2022 TECHNIQUE: Digital mammogram in CC and MLO projections including computer-aided detection (CAD) and tomosynthesis. BREAST COMPOSITION: The breasts are heterogeneously dense, which may obscure small masses. FINDINGS: No suspicious findings. ASSESSMENT: BI-RADS 1 Negative RECOMMENDATION: Annual screening mammogram. A lay language report of this examination will be provided to the patient. Dictated by: Stevie Cuadra MD @ 02/08/2025 09:33:43 (Electronically Signed)
== END 2025-02-07 15:07 | disposition home or self-care (01) ==
LOC: MAMMO 15:06
PROVIDERS: Visit Provider Physician Assistant
DX: Z12.31 Encounter for screening mammogram for malignant neoplasm of breast (principal); R92.333 Mammographic heterogeneous density, bilateral breasts
CPT/HCPCS: 77063; 77067